=== PATIENT | male | born 1935 | race Caucasian/White ===

== ENCOUNTER → 2016-10-16 | Outpatient (CLI) | payer OTHER, BC ==
[~2016-10-16] VITALS: Ht 177.8 cm; Wt 76.7 kg
[~2016-10-16] MED LIST: GLYSET PO; METFORMIN HCL500 MG PO; [UNRECOGNIZED DRUG - REMARK]
--- NOTE | ~2016-10-16 | S ---
[facility] [place] [address] SURGICAL PATH RPT PROCEDURE Name: JADEN [facility] Room #: [facility]..#: [id number] Admission: 10/16/16 Date of : 37 Discharge: Report #: [id number] Path Case #: [id number] PATHOLOGY REPORT COLLECTION DATE: 10/16/2016 RECEIVED DATE: 10/16/2016 SUBMITTING PHYS: Dr. Davey Mustafa OTHER PHYS: SPECIMEN(S) RECEIVED: A.Left lung bx * * * * * * * * * * * * FINAL DIAGNOSIS: Lung mass, left, core needle biopsy: - INVASIVE MODERATELY DIFFERENTIATED SQUAMOUS CELL CARCINOMA. (Please see comment) COMMENT: This case has also been reviewed by Dr. Hi Elias who agrees with the diagnosis. The findings in this case were discussed with Dr. Larry on 10/17/2016. (SKM:pit; 10/17/2016) PATHOLOGIST: Kassandra Hoyt M.D. REPORT ELECTRONICALLY SIGNED BY: Kassandra Hoyt M.D. DATE/TIME: 10/17/2016 14:06 * * * * * * * * * * * * GROSS PATHOLOGY: Received in formalin labeled "Jaden Walden, left lung biopsy," are multiple distinct needle cores of rogers soft tissue ranging from 0.1 to 0.7 cm in length, which are submitted entirely in cassette A1. (SNA; 10/16/2016) CLINICAL HISTORY: Lung mass INITIAL CPT CODE(S): A; 22412 Professional services performed by [facility] at [facility] [address], [place] [address] [facility] [address] [place] [address] SURGICAL PATH RPT PROCEDURE Name: JADEN WALDEN Room #: REG [facility] M..#: [id number] Admission: 10/16/16 Date of : 37 Discharge: Report #: [id number] Path Case #: [id number] Technical services performed by [facility] at [address] [place] [address], [facility] [address], [place] [address]. [facility] [address] [place] [address] PHONE: [phone] DIRECTOR: Nain Thomas M.D. * * * END OF REPORT * * *
[2016-10-16 08:12] LABS: ABSOLUTE NEUTROPHILS 5.4 thou/uL (1.4-8.2); BASOPHILS 1.3 % (0.0-2.0); EOSINOPHILS 2.7 % (0.0-3.0); HEMOGLOBIN 13.4 gm/dL (14.0-18.0); LYMPHOCYTES 17.1 % (24.0-44.0); MCH 27.9 pg (26.0-34.0); MCHC 34.5 g/dL (28.0-37.0); PLATELET COUNT 290 thou/uL (150-400); POLYS 67.9 % (36.0-66.0); RBC 4.81 mil/uL (4.50-6.00); RDW 15.2 % (10.5-14.5); WBC 7.9 thou/uL (4.0-11.0)
[2016-10-16 08:13] LABS: MANUAL DIFF NO
[2016-10-16 08:15] LABS: CALCIUM 8.6 mg/dL (8.5-10.1); CREATININE 1.3 mg/dL (0.7-1.3); POTASSIUM 4.5 mmol/L (3.5-5.1)
[2016-10-16 08:19] LABS: PROTIME 10.3 Seconds (9.3-11.4)
[2016-10-16 08:21] LABS: ALBUMIN 2.9 g/dL (3.4-5.0); TOTAL BILIRUBIN 0.3 mg/dL (<0.1-1.0)
[2016-10-16 08:29] VITALS: BP 183/72
[2016-10-16 09:10] VITALS: BP 168/84
[2016-10-16 09:20] VITALS: BP 161/81
[2016-10-16 09:25] VITALS: BP 178/85
[2016-10-16 09:30] VITALS: BP 182/80
[2016-10-16 09:35] VITALS: BP 180/80
== END | disposition home or self-care (01) ==
LOC: CAT 07:25
PROVIDERS: Radiology Radiation Oncology
DX: C34.32 Malignant neoplasm of lower lobe, left bronchus or lung (principal); I10 Essential (primary) hypertension; E11.9 Type 2 diabetes mellitus without complications; Z79.4 Long term (current) use of insulin; Z79.899 Other long term (current) drug therapy